=== PATIENT | female | born 1960 | race Caucasian/White ===

== ENCOUNTER → 2018-05-20 | Day surgery (SDC) | payer MEDICARE, BC ==
--- NOTE | 2018-05-03 22:15 | HP ---
DATE OF ADMISSION: 05/03/2018 HISTORY OF PRESENT ILLNESS: This is the first orthopedic outpatient admission for surgery for this 57-year- old female who is being scheduled for arthroscopic surgery of the right shoulder rotator cuff decompression, possible rotator cuff repair. The patient has had significant problems with the shoulder with severe pain. She has lost functional activity with loss of range of motion as a result of the pain reaction. MRI has disclosed positive severe osteoarthritis and joint changes of the acromioclavicular joint with rotator cuff impingement. With the failed conservative treatment the patient has had, she is now being scheduled for arthroscopic treatment. Procedure has been outlined to her. She understands procedure and has consented to it. ALLERGIES: To sulfa. PAST MEDICAL HISTORY: The patient has a history of tremors, exposure to chemicals. CURRENT MEDICATIONS: Current medications includes Celebrex, gabapentin, Voltaren gel, and multivitamins. PAST SURGICAL HISTORY: The patient has a previous surgical history of cataract removal, also had a left knee arthroscopy. No anesthesia problems are noted. She has a negative bleeding history, negative blood clot history. SOCIAL HISTORY: The patient is a smoker, half pack per day. Her alcohol use is rare. PHYSICAL EXAMINATION: GENERAL: Today reveals a well-developed, well-nourished 57-year-old female, in moderate distress. HEAD, EYES, EARS, NOSE, AND THROAT: Normocephalic. NECK: Supple. CHEST: Clear. COR: Regular rate. ABDOMEN: Soft. GENITOURINARY: Intact. EXTREMITIES: Examination right shoulder reveals positive decreased range of motion to abduction 120 degrees, forward flexion 120 degrees. Severe pain on direct pressure of the acromioclavicular joint on palpation. Recent MRI has disclosed the patient has severe degenerative arthritis of the acromioclavicular joint and also rotator cuff impingement. PLAN: The plain is for the patient undergo surgical arthroscopic treatment. Procedure has been outlined to her. She understands and has consented to it. MMALEJANDRA /[id number]
[~2018-05-20] MED LIST: Acetaminophen/oxyCODONE 325-5 MG Tab PO PRN; Bupivacaine 0.5%/EPINEPHrine 1:200,000 50 ML MDV ONE; Cyclobenzaprine 10 MG Tab PO PRN; EPINEPHrine 1 MG/ML 30 ML MDV ONE; EPINEPHrine 1 MG/ML SDV ONE; Iodine/Sodium Iodide 2% Tincture 30 ML Bottle ONE; Ketorolac 30 MG/ML SDV IVPUSH PRN; Lactated Ringers 1,000 ML IV SCH; Lactated Ringers 1,000 ML ONE; Lidocaine 1% 2 ML ONE; Lidocaine 1% 4 ML ONE; Lidocaine 1%/Sod Bicarbonate in NS 8.4% 1 ML Syringe IDERM PRN; Midazolam 1 MG/ML 2 ML SDV ONE; Morphine 15 MG Tab.ER PO SCH; Ondansetron 4 MG/2 ML SDV IVPUSH PRN; Ondansetron 4 MG/2 ML SDV ONE; Propofol 200 MG/20 ML SDV ONE; Rocuronium 50 MG/5 ML Vial ONE; Ropivacaine 0.5% 5 MG/ML 30 ML SDV ONE; Sodium Chloride 0.9% 10 ML Syringe FLUSH PRN; ceFAZolin 1 GM Vial ONE; ePHEDrine/Normal Saline 25 MG/5 ML Syringe ONE; fentaNYL 100 MCG/2 ML SDV IVPUSH PRN; fentaNYL 100 MCG/2 ML SDV ONE
--- NOTE | 2018-05-20 06:58 | PCM.PREANE ---
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) Other: Reports: None - Physical Assessment NPO Status Date: 05/19/18 NPO Status Time: 00:00 Pulse: 65 O2 Sat by Pulse Oximetry: 98 Respiratory Rate: 16 Blood Pressure: 122/78 Temperature: 36.2 C Height: 1.63 m Weight: 47.264 kg ASA Class: 2 Mental Status: Alert & Oriented x3 Dentition: Reports: Normal Dentition, [place](s) Thyro-Mental Finger Breadths: 3 Mouth Opening Finger Breadths: 2 ROM/Head Extension: Limited/Partial (stiff this morning) Lungs: Clear to Auscultation, Normal Respiratory Effort Cardiovascular: Regular Rate, Regular Rhythm, No Murmurs - Lab Values: on chart - Imaging/EKG Impressions: SR on chart - Allergies Allergies/Adverse Reactions: Allergies Allergy/AdvReac Type Severity Reaction Status Date / Time latex Allergy Cannot Verified 05/19/18 14:51 Remember Sulfa (Sulfonamide Allergy Cannot Verified 05/19/18 14:51 Antibiotics) Remember - Blood Blood Available: No Product(s) Available: None - Anesthesia Plan Pre-Op Medication Ordered: None - Acknowledgements Anesthesia Type Planned: General Anesthesia, Regional Block (right shoulder interscalene block for post-op pain control) Pt an Appropriate Candidate for the Planned Anesthesia: Yes Alternatives and Risks of Anesthesia Discussed w Pt/Guardian: Yes Pt/Guardian Understands and Agrees with Anesthesia Plan: Yes PreAnesthesia Questionnaire HEENT History: Reports: Cataract, Hard of Hearing, Other (See Below) Other HEENT History: wears glasses, has hearing aids Cardiovascular History: Reports: None Respiratory History: Reports: Other (See Below) Other Respiratory History: black mold exposure, chemical exposure Gastrointestinal History: Reports: None Genitourinary History: Reports: None Musculoskeletal History: Reports: Arthritis, Other (See Below) Other Musculoskeletal History: ac joint bone spurs, left knee pain, right hip bursitis, bilateral plantar fasciitis, right shoulder pain and impingment, peroneal tendinitis Neurological History: Reports: Migraines, Seizure, TIA, Other (See Below) Other Neuro History: balance problems, tremors, neurotoxicity Psychiatric History: Reports: None Endocrine/Metabolic History: Reports: None Hematologic History: Reports: None Immunologic History: Reports: None Oncologic (Cancer) History: Reports: None Dermatologic History: Reports: None - Past Surgical History Head Surgeries/Procedures: Reports: None HEENT Surgical History: Reports: Cataract Surgery, Tonsillectomy Cardiovascular Surgical History: Reports: None Respiratory Surgical History: Reports: None GI Surgical History: Reports: None Female Surgical History: Reports: Hysterectomy Male Surgical History: Reports: None Endocrine Surgical History: Reports: None Neurological Surgical History: Reports: None Musculoskeletal Surgical History: Reports: Other (See Below) Other Musculoskeletal Surgeries/Procedures:: knee surgery Oncologic Surgical History: Reports: None Dermatological Surgical History: Reports: None - SUBSTANCE USE Smoking Status *Q: Current Every Day Smoker Tobacco Use Within Last Twelve Months: Cigarettes Second Hand Smoke Exposure: No Days Per Week of Alcohol Use: 1 Number of Drinks Per Day: 0 Total Drinks Per Week: 0 Recreational Drug Use History: No - HOME MEDS Home Medications: Home Meds Albuterol [Ventolin HFA] 2 puff INH Q4H PRN 05/19/18 [History] Celecoxib 200 mg PO DAILY 05/19/18 [History] Diclofenac Sodium [Voltaren 1% Gel] 1 dose TOP QID PRN 05/19/18 [History] Gabapentin [Neurontin] 100 mg PO TID 05/19/18 [History] levETIRAcetam [Keppra] 500 mg PO BID 05/19/18 [History] - CURRENT (IN HOUSE) MEDS Current Meds: Current Medications Lactated Ringer's (Ringers, Lactated) 1,000 mls @ 125 mls/hr IV ASDIRECTED BONY Stop: 05/20/18 23:00 Lidocaine/Sodium Bicarbonate (Buffered Lidocaine 1% In Ns 8.4%) 0.25 ml IDERM ONETIME PRN PRN Reason: Prior to IV Start Stop: 05/20/18 18:00 Sodium Chloride (Saline Flush) 10 ml FLUSH ASDIRECTED PRN PRN Reason: Keep Vein Open Stop: 05/20/18 18:00
--- NOTE | 2018-05-20 11:48 | PCM.POSTAN ---
POST ANESTHESIA ASSESSMENT - MENTAL STATUS Mental Status: Alert, Oriented - VITAL SIGNS Pulse Rate: 82 SaO2: 91 Resp Rate: 14 Blood Pressure: 125/66 Temperature: 36.0 C - RESPIRATORY Respiratory Status: Respiratory Rate WNL, Airway Patent, O2 Saturation Stable, Supplemental Oxygen - CARDIOVASCULAR CV Status: Pulse Rate WNL, Blood Pressure Stable - GASTROINTESTINAL GI Status: No Symptoms - PAIN Pain Score: 0 - POST OP HYDRATION Hydration Status: Adequate & Stable - OBSERVATIONS Free Text/Narrative:: no anesthesia complications noted
--- NOTE | 2018-05-20 12:02 | PCM.SN ---
- Free Text/Narrative Note: Anesthesia Note: (Right Interscalene Block Note) Date: 05/20/2018 Time Out: 805 Start: 805 Stop: 820 Surgical Procedure: Right Shoulder Arthroscopy and decompression Diagnosis Right shoulder pain Current Procedure: Right interscalene block under US guidance for postoperative pain control requested by Dr. Trejo. Patient chart reviewed, risk/benefits discussed with patient, consent obtained. Patient positioned supine, monitors/alarms on, oxygen placed via nasal cannula at 2 LPM. IV sedation administered: Versed 2mg IV @ 0807, Fentanyl 100mcg IV @ 0807 right shoulder prepped with two chloropreps. Sterile drapes placed with aseptic technique noted. Under US guidance, right subclavian artery visualized along with the right brachial plexus. Plexus followed up to C6 cricoid level, and area localized with 2mls of 1% lidocaine. 22gauge 2 inch stimiplex needle advanced under US with 0.8mV with stimulation of biceps noted. Good stimulation noted with decreased voltage and absent at 0.4mVs. 1ml of Normal Saline injected with loss of stimulation noted to confirm needle not placed intraneurally. Incremental dosing of 5mls with negative aspiration noted prior to each injection of 0.5% ropivacaine with 1:200,000 epinephrine. Total volume=30mls. Please refer to nurses noted for vital signs. Sam Hunt CRNA
--- NOTE | 2018-05-21 07:38 | OR ---
DATE OF OPERATION: 05/20/2018 SURGEON: Steven Alejandro MD PREOPERATIVE DIAGNOSIS: 1. Right shoulder severe acromioclavicular joint arthritis with rotator cuff impingement. 2. Rotator cuff tear of right shoulder. 3. Torn glenoid labrum, right shoulder. POSTOPERATIVE DIAGNOSIS: 1. Right shoulder severe acromioclavicular joint arthritis with rotator cuff impingement. 2. Rotator cuff tear of right shoulder. 3. Torn glenoid labrum, right shoulder. ANESTHESIA: General. OPERATION PERFORMED: 1. Arthroscopic debridement of the right shoulder joint with removal of torn glenoid labrum. 2. Arthroscopic partial acromionectomy, right shoulder. 3. Arthroscopic distal clavicle resection, right shoulder. 4. A mini-open rotator cuff repair, right shoulder. DESCRIPTION OF PROCEDURE: The patient was taken to the operating room in supine position. She was placed under a general anesthesia and then placed in the sitting position for arthroscopic approach to the shoulder. Once the patient was in position, the operation proceeded with prepping and draping the shoulder and arm by standard technique. The procedure proceeded with entry into the shoulder joint with a posterior incision being placed over the anatomical soft spot. The arthroscope was introduced into the shoulder joint. A Wissinger tatyana was used to create the anterior portal and then the operation proceeded with inspection of the joint. The biceps tendon was intact. Also the subscapularis was intact. There was fraying and degenerative tearing of the glenoid labrum anterior and superiorly underneath the biceps tendon. This was resected and smoothed out a nice smooth area. The remaining portion of the glenohumeral joint was intact. Rotator cuff showed a large tear from the anterior to posterior direction and once that was identified, the operation was then proceeded with removal of the scope from the internal portion of the shoulder joint and was then placed at the subacromial space. Once in the subacromial space, the debridement was carried out and then the operation proceeded with partial acromionectomy. I created a nice smooth acromion. The patient had significant large exostosis formation on the undersurface of acromion and a large anterior extension of the AC joint also showed severe arthritis. A distal clavicle resection was carried out approximately 5 mm. I created a nice clean space and once that was completed, the operation proceeded with final irrigation and light debridement of the joint area. It was opted to go with the mini-open repair of the rotator cuff. The operation proceeded with the continuation of the anterior incision proximally and distally for approximately 3-4 cm and then penetrating through skin and subcutaneous tissues. Deltoid was split and the operation was proceeded and coming right down on the greater tuberosity. This area was lightly debrided. The rotator cuff itself was split from anterior to posterior direction of the greater tuberosity with a portion of it torn off the greater tuberosity. It was opted to go ahead and do a [id number] repair with a 2-0 FiberWire and once placing the sutures deep, reapproximating the edges of the rotator cuff, several sutures were used and this created a nice solid repair of the extended rotator cuff tear posteriorly. The remaining portion was then tacked to the greater tuberosity using the speed bridge. This firmly reattached the rotator cuff. #1 Vicryl was used to close some small intervals that were present, but otherwise the whole portion of the rotator cuff was securely fixated. Operation proceeded with irrigation of the joint area since this was a mini open, on palpation with the finger of the undersurface acromion found this to be nice and smooth as well as the edge of the clavicle. The operation proceeded with continued irrigation of the glenoid. The deltoid muscle was then closed and reapproximated to the acromion clavicle with #1 Vicryl. Subcutaneous tissues were closed with 3-0 Vicryl. Skin with skin ken; all wounds. The patient was then placed in standard dressings. She tolerated the procedure well. She left the operating room in stable condition to room for recovery. ESTIMATED BLOOD LOSS: MMODAL /[id number]
== END | disposition home or self-care (01) ==
LOC: JD.SDS 06:20
PROVIDERS: ATTEND Specialist
DX: M13.811 Other specified arthritis, right shoulder (principal); M75.41 Impingement syndrome of right shoulder; M75.101 Unspecified rotator cuff tear or rupture of right shoulder, not specified as traumatic; S43.431A Superior glenoid labrum lesion of right shoulder, initial encounter; F17.210 Nicotine dependence, cigarettes, uncomplicated; Z88.2 Allergy status to sulfonamides; Z79.899 Other long term (current) drug therapy; Z91.040 Latex allergy status
CPT/HCPCS: 01610; 64415; A9270-GY; C1713; J0171; J0690; J2001; J2250; J2405; J2704; J2795; J3010; J3490; J7050; J7120